=== PATIENT | female | born 1985 | race Caucasian/White ===

== ENCOUNTER 2021-04-23 12:11 | Outpatient (REF) | payer OTHER, SELFPAY ==
[2021-04-23 14:42] LABS: Alanine Aminotransferase 10 U/L (0-31); Anion Gap 13 (12-20); Aspartate Amino Transferase 14 U/L (5-31); Blood Urea Nitrogen 18 mg/dL (9-16); Calcium 9.5 mg/dL (8.4-10.2); Carbon Dioxide 25 mmol/L (22-29); Chloride 104 mmol/L (96-108); Cholesterol 197 mg/dL; Estimated Glomerular Filt Rate > 60; Glucose Fasting 85 mg/dL (60-99); HDL Cholesterol 75 mg/dL; LDL Cholesterol Calculated 112 mg/dl; Potassium 4.9 mmol/L (3.3-5.1); Sodium 137 mmol/L (135-145); Triglycerides 52 mg/dL
[2021-04-23 15:02] LABS: Vitamin D 25-OH Total 26.1 ng/mL (>30)
== END 2021-04-23 12:12 | disposition home or self-care (01) ==
LOC: HO.HMGCLDS 12:11
PROVIDERS: PCP Internal Medicine; Visit Provider Internal Medicine
DX: Z00.00 Encounter for general adult medical examination without abnormal findings (principal); I10 Essential (primary) hypertension; Z87.442 Personal history of urinary calculi
CPT/HCPCS: 36415; 80048; 80061; 82306; 84450; 84460

== ENCOUNTER 2021-05-21 10:26 | Outpatient (REF) | payer OTHER, SELFPAY ==
--- NOTE | ~2021-05-21 | US_ITS ---
EXAMINATION: US RETROPERITONEAL LIMITED (RENAL ONLY) CLINICAL INFORMATION: Personal history of urinary calculi. COMPARISON: None TECHNIQUE: Real-time imaging of the kidneys. FINDINGS: RIGHT KIDNEY: 11.5 x 4.0 x 4.6 cm (SAG x AP x TRV). The kidney is normal in size, contour, and echogenicity. Renal cortical thickness is normal. No calculi or focal parenchymal lesions. No hydronephrosis. LEFT KIDNEY: 10.0 x 4.5 x 4.7 cm (SAG x AP x TRV). The kidney is normal in size, contour, and echogenicity. Renal cortical thickness is normal. No focal parenchymal lesions or hydronephrosis. Midpole nonobstructing calculi measuring 3 mm and 2 mm respectively. US/US renal BI IMPRESSION: Left renal nonobstructing calculi. No evidence of hydronephrosis.
== END 2021-05-21 10:27 | disposition home or self-care (01) ==
LOC: HO.US 10:26
PROVIDERS: Visit Provider Internal Medicine
DX: Z87.442 Personal history of urinary calculi (principal)
CPT/HCPCS: 76775

== ENCOUNTER 2022-11-01 08:45 | Outpatient (REF) | payer OTHER, SELFPAY ==
--- NOTE | ~2022-11-01 | XR_ITS ---
EXAMINATION: XR FOREARM, RIGHT CLINICAL INFORMATION: Pain in the right forearm COMPARISON: None TECHNIQUE: AP and lateral views of the right forearm were obtained. FINDINGS: No fracture or cortical disruption. Appropriate alignment of the wrist and elbow. The soft tissues are unremarkable. No elbow joint effusion. XR/XR forearm RT 2V IMPRESSION: Normal right forearm.
== END 2022-11-01 08:46 | disposition home or self-care (01) ==
LOC: HO.HMGCX 08:45
PROVIDERS: PCP Internal Medicine; Visit Provider Internal Medicine
DX: M79.631 Pain in right forearm (principal)
CPT/HCPCS: 73090

== ENCOUNTER 2022-11-04 08:42 | Outpatient (REF) | payer OTHER, SELFPAY ==
[2022-11-04 11:28] LABS: MANUAL DIFF FLAG NO
[2022-11-04 11:45] LABS: Basophils Absolute Auto 0.1 X10*3/uL (0.0-0.2); Basophils Percent Auto 0.8 % (0-2); Eosinophils Absolute Auto 0.1 X10*3/uL (0.0-0.4); Eosinophils Percent Auto 1.8 % (0-4); Hemoglobin 13.4 g/dl (12.0-16.0); Imm Gran Abs Auto 0.03 X10*3/uL (0.00-0.03); Imm Gran Pct Auto 0.5 % (0.0-0.4); Lymphocytes Absolute Auto 1.7 X10*3/uL (1.2-4.9); Lymphocytes Percent Auto 25.7 % (20-40); Mean Corpuscular HGB Conc 32.7 g/dl (31.0-35.0); Mean Corpuscular Hemoglobin 31.1 pg (27.0-33.0); Mean Corpuscular Volume 95.1 fL (80.0-98.0); Mean Platelet Volume 10.5 fL (9.4-12.3); Monocytes Absolute Auto 0.5 X10*3/uL (0.1-1.2); Monocytes Percent Auto 7.1 % (2-11); Neutrophils Absolute Auto 4.2 x10*3/uL (2.0-8.3); Neutrophils Percent Auto 64.1 % (45-73); Platelet Count 208 X10*3/uL (160-400); Red Blood Count 4.31 X10*6/uL (4.20-5.50); Red Cell Distribution Width 12.1 % (11.0-16.0); White Blood Count 6.5 X10*3/uL (4.8-10.8)
[2022-11-04 12:14] LABS: Alanine Aminotransferase 10 U/L (0-31); Aspartate Amino Transferase 12 U/L (5-31); Cholesterol 176 mg/dL; Glucose Fasting 85 mg/dL (60-99); HDL Cholesterol 72 mg/dL; LDL Cholesterol Calculated 93 mg/dl; Triglycerides 57 mg/dL
[2022-11-04 12:20] LABS: Vitamin D 25-OH Total 40.6 ng/mL (>30)
== END 2022-11-04 08:43 | disposition home or self-care (01) ==
LOC: HO.HMGCLDS 08:42
PROVIDERS: PCP Internal Medicine; Visit Provider Internal Medicine
DX: Z00.00 Encounter for general adult medical examination without abnormal findings (principal); N92.0 Excessive and frequent menstruation with regular cycle; Z86.39 Personal history of other endocrine, nutritional and metabolic disease
CPT/HCPCS: 36415; 80061; 82306; 82947; 84450; 84460; 85025

== ENCOUNTER 2023-11-05 07:49 | Outpatient (AMB) | payer OTHER, SELFPAY ==
--- NOTE | 2023-11-05 07:51 | MHC.PC.OV ---
Vital Signs 11/05/23 07:55 Height 5 ft 4 in Weight 129 lb BMI 22.1 BP 110/64 Blood Pressure Location Rt brachial Position Sitting Pulse 69 Pulse Source Pulse Oximeter Pulse Oximetry (%) 99 Oxygen Delivery Method Room Air Intake Visit Reasons: Annual PE Intake Note: Pt is here today for her PE: Last papsmear 10/24/22 Allergies azithromycin [Zithromax] Adverse Reaction (Unknown, Verified 11/05/23 08:11) nausea/vomiting Medication List - Last Reconciled 11/05/23 by Nola Lewis MD norethindrone-ethin estradiol 1-35 mg-mcg (Alyacen) 1 tab PO DAILY Tobacco use date assessed: 11/05/23 Dental Screening Dental Screen Date: 11/05/23 Did you have a dental visit in the last 12 months?: Yes Did you have a dental problem in the last 6 months where you did not have access to dental care?: No Was dental information given to patient?: Patient has dentist HPI Annual PE HPI Details 37-year-old lady, here today for physical exam. Goes to [facility] for her routine Pap and pelvic exam which is currently up-to-date. She is also being followed there for her endometriosis here. She has had COVID vaccination in the past but does not want to get the booster, does not get flu shots, has had Tdap in the past, now due. Currently very worried about her daughter who has been cutting herself, now going to be seen for full psychiatric evaluation at [facility]. Has been having frequent anxiety attacks and depressed mood, currently also in the process of being seen for therapy at the same place as her daughter at [facility]. Does not want to start any medication at present time, able to control through breathing techniques [facility] Medical History (Updated 11/05/23 @ 08:33 by Nola Lewis MD) Endometriosis COVID-19 vaccine dose declined Refused influenza vaccine Mixed anxiety and depressive disorder History of vitamin D deficiency Anal fissure History of COVID-19 Hx of renal calculi History of iron deficiency anemia Bilateral ovarian cysts Raynauds syndrome Pes planus of both feet Surgical History No pertinent past surgical history Family History Father Essential hypertension Hyperlipidemia Mother Migraine Daughter Bipolar disorder Social History Housing: House Patient Tobacco Use Status: Former Tobacco user Years Smoked: 5 yrs e-Cigarette/Vaping Use: Never Used Second Hand Smoke Exposure: No service: No Current occupational status: employed 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 1. Little interest or pleasure in doing things: several days 2. Feeling down, depressed, or hopeless: more than half the days 3. Trouble falling or staying asleep, or sleeping too much: more than half the days 4. Feeling tired or having little energy: more than half the days 5. Poor appetite or overeating: several days 6. Feeling bad about yourself - or that you are a failure or have let yourself or your family down: more than half the days 7. Trouble concentrating on things, such as reading the newspaper or watching television: several days 8. Moving or speaking so slowly that other people could have noticed. Or the opposite - being so fidgety or restless that you have been moving around a lot more than usual: not at all 9. Thoughts that you would be better off or of hurting yourself in some way: not at all Total score: 11 Depression Screening Interpretation: Positive Depression Screening Follow-up: Existing condition, Community Mental Health Worker F/U (Currently in the process of being seen by therapist at [facility]) and Declines treatment (Declines medication) Depression Screening Done: Yes [id number] - PHQ-9 Billing: Yes Source: Developed by Drs. Mihai Yan, Goldie Fernández, Efren Allison and colleagues, with an educational lauren from [employer]. Thrive Questionnaire Date Thrive assessed: 11/05/23 I am a: Patient What is your living situation today?: I have a place to live, but I am worried about losing it in the future Within the past 12 months, did the food you bought not last and you didn't have the money to get more?: Never true Within the past 12 months, did you worry whether your food would run out before you got money to buy more?: Never true Do you have trouble paying for medicines?: No Do you have trouble getting transportation to medical appointments?: No Do you have trouble paying your heating and electricity bill?: No Do you have trouble taking care of your child, family member or friend?: No Do you have trouble with day-to-day activities such as bathing, preparing meals, shopping, managing finances, etc.?: No Are you currently unemployed and looking for a job?: No Are you interested in more education?: No THRIVE Score: 1 AUDIT C Alcohol Use Questionnaire (AUDIT-C) 1. How often do you have a drink containing alcohol?: Monthly or less 2. How many drinks containing alcohol do you have on a typical day when you are drinking?: 1 or 2 3. How often do you have six or more drinks on one occasion?: Never Total Score: 1 MANDA-7 AMB Questionnaire MANDA-7 Date MANDA - 7 assessed: 11/05/23 Feeling nervous, anxious, or on edge: 1 = Several days Not being able to stop or control worryin = More than half the days Worrying too much about different things: 1 = Several days Trouble relaxin = Several days Being so restless that it is hard to sit still: 1 = Several days Becoming easily annoyed or irritable: 1 = Several days Feeling afraid as if something awful might happen: 1 = Several days Total MANDA-7 score (0-4 normal; 5-9 mild; 10-14 moderate; 15-21 severe): 8 Source: Developed by Drs. Mihai Yan, Goldie Fernández, Efren Allison and colleagues, with an educational lauren from [employer]. MANDA-7 Assessment Billing MANDA-7 Assessment Tool: MANDA-7 Assessment 88805 Review of Systems Const Denies body aches, Denies fatigue, Denies fever(s), Denies headache(s) and Denies weakness Eyes Details: Currently sees an eye doctor in [facility]del[place]del[place] Denies change in vision, Denies eye discharge and Reports floaters ENT Denies dizziness, Denies headache(s), Denies nasal congestion, Denies nasal discharge and Denies sore throat Card Denies chest pain, Denies lightheadedness, Denies palpitations and Denies dyspnea Resp Denies chest congestion, Denies cough, Denies dyspnea and Denies wheezing GI Denies abdominal pain, Denies change in bowel habits and Denies heartburn Details: Currently being followed by her OBGYN at [facility] for her endometriosis, has irregular menstrual cycles, and occasional dyspareunia. up-to-date with her Pap smear Denies urinary frequency, Denies dysuria and Denies urinary urgency Musc Reports as per HPI Skin/Breast Denies lesions and Denies rash Neuro Denies dizziness, Denies headache(s) and Denies weakness Psych Reports as per HPI Endo Denies fatigue, Denies polydipsia, Denies polyuria and Denies palpitations Fran/Lymph Denies easy bruising Aller/Immun Denies seasonal rhinorrhea and Denies wheezing Physical exam (Primary Care) Vital Signs: Last Vital Signs Pulse 69 11/05/23 07:55 BP 110/64 11/05/23 07:55 Pulse Ox 99 11/05/23 07:55 Oxygen Delivery Method Room Air 11/05/23 07:55 BMI result Body Mass Index 22.1 Tobacco/Smoking Status: Tobacco use Status Tobacco use date assessed 11/05/23 11/05/23 07:58 Patient Tobacco Use Status Former Tobacco user 11/05/23 07:58 e-Cigarette/Vaping Use Never Used 11/05/23 07:58 Depression Screening Interpretation: Positive Depression Screening Follow-up: Existing condition, Community Mental Health Worker F/U (Currently in the process of being seen by therapist at [facility]) and Declines treatment (Declines medication) Thrive Assessment: Date of Thrive Assessment Date Thrive assessed 11/01/22 11/05/23 07:58 Const General: cooperative, comfortable and no acute distress Orientation/consciousness: patient oriented x3 HENMT Ears: hearing grossly normal bilaterally, external ears normal, TM's normal bilaterally and EAC's normal General nose exam: Normal external nose present, Normal nasal mucous membranes and turbinates present and No nasal discharge present Mouth: Normal oral and palatal mucosa present, oropharynx normal and moist mucous membranes Throat: Yes posterior oropharynx normal Eyes General: appearance normal, both eyes and all related structures Conjunctivae: conjunctivae normal Pupils: Equal, round and reactive pupils present EOM: EOMs intact bilaterally Neck Neck: Yes full ROM, Yes no lymphadenopathy and Yes supple Thyroid: Thyroid normal (Nonpalpable) Chest Chest palpation & inspection: normal inspection of the chest Breast/axilla palpation: normal palpation of the breasts Resp Effort & Inspection: normal respiratory effort and able to speak in complete sentences Auscultation: clear to auscultation bilaterally Cardio Rate: regular rate Rhythm: regular rhythm Heart sounds: S1 normal heart sound present and S2 normal heart sound present GI Inspection: Yes normal to inspection Palpation (GI): Soft to palpation, nontender and no masses Auscultation: normal bowel sounds General: Yes deferred (Goes to [facility], up-to-date with her Pap smear done earlier this mon) Back/Spine/Pelvis Cervical Spine: cervical ROM normal Thoracic/Lumbar Spine: thoracic and lumbar spine normal to inspection Skin General skin exam: no rashes or lesions noted Neuro General: patient oriented x3, gait normal, tone normal, moves all extremities, Normal light touch and pain sensation and no focal motor deficits Cranial nerves: Yes Equal, round and reactive pupils present Cognition (Neuro): normal cognition Gait exam (Neuro): Normal gait present Motor exam (neuro): 5/5 motor strength present throughout Extrem General: Yes full ROM, Yes no joint enlargement, Yes no clubbing, cyanosis or edema, Yes no pedal edema, Yes no calf tenderness and Yes normal gait Psych Appearance: grossly normal Mental Status: mental status grossly normal Speech and movement: Normal speech and movement present Affect: normal affect Attitude: cooperative Thought process: Normal thought process present Immunizations Boostrix Tdap 2.5 Lf unit-8 mcg-5 Lf/0.5 mL intramuscular syringe Performing Provider: Nola Lewis MD Performing Location: [facility] Administered by: Flor Vitale CMA on 11/05/23 08:37 Dose Route Admin Location Dispensed Lot Number Expiration Date NDC Digital Editor 0.5 mL IM Left Deltoid 0.5 mL [id number] 01/15/26 [id number] [employer] VIS Given Date VIS Provided VIS Publication Date 11/05/23 Single Vaccine 21 Eligibility Eligibility Date Funding Source Not [facility] Eligible 11/05/23 Private Assessment and Plan Assessment & Plan (1) Annual visit for general adult medical examination with abnormal findings: Code(s): Z00.01 - Encounter for general adult medical examination with abnormal findings Plan: Will check appropriate labs. Recommended dental visit every 6 months and regular eye exams, at least every 2 years. Take adequate calcium in diet and vitamin-D 3 at 2000 IU per cap once a day, in addition to weight-bearing exercises to help maintain good muscle tone and weight control. Instructed to do self-breast exam, and recommended to get yearly mammogram, starting at age 40. Declines getting COVID booster and flu vaccine, Tdap given today (2) History of vitamin D deficiency: Code(s): Z86.39 - Personal history of other endocrine, nutritional and metabolic disease Plan: Will check vitamin-D, advised to start taking sque-amu-cjwyshl vitamin-D 3 at least 2000 units daily (3) Mixed anxiety and depressive disorder: Code(s): F41.8 - Other specified anxiety disorders Plan: Currently in the process of seeing a therapist at [facility]. Declines starting any medication, able to control her symptoms with behavioral modifications (4) Refused influenza vaccine: Code(s): Z28.21 - Immunization not carried out because of patient refusal (5) COVID-19 vaccine dose declined: Code(s): Z28.21 - Immunization not carried out because of patient refusal (6) Endometriosis: Comment: Followed by Cyndee Farfan at [facility] Code(s): N80.9 - Endometriosis, unspecified Plan: Currently on control pills, followed by [facility] Orders: Orders Alanine Aminotransferase Today Z00.01 - Encounter for general adult medical examination with abnormal findings, Z13.1 - Encounter for screening for diabetes mellitus, Z13.220 - Encounter for screening for lipoid disorders, Z86.39 - Personal history of other endocrine, nutritional and metabolic disease Aspartate Amino Transferase Today Z00.01 - Encounter for general adult medical examination with abnormal findings, Z13.1 - Encounter for screening for diabetes mellitus, Z13.220 - Encounter for screening for lipoid disorders, Z86.39 - Personal history of other endocrine, nutritional and metabolic disease Lipid Panel Today Z00.01 - Encounter for general adult medical examination with abnormal findings, Z13.1 - Encounter for screening for diabetes mellitus, Z13.220 - Encounter for screening for lipoid disorders, Z86.39 - Personal history of other endocrine, nutritional and metabolic disease Vitamin D 25-OH Total Today Z00.01 - Encounter for general adult medical examination with abnormal findings, Z13.1 - Encounter for screening for diabetes mellitus, Z13.220 - Encounter for screening for lipoid disorders, Z86.39 - Personal history of other endocrine, nutritional and metabolic disease TDaP Immunization Today Z23 - Encounter for immunization Glucose Fasting Today Z00.01 - Encounter for general adult medical examination with abnormal findings, Z13.1 - Encounter for screening for diabetes mellitus, Z13.220 - Encounter for screening for lipoid disorders, Z86.39 - Personal history of other endocrine, nutritional and metabolic disease Medications: New Boostrix Tdap (diphth,pertus(acell),tetanus) 0.5 mL IM ONCE 0.5 mL 0RF NS Z23 - Encounter for immunization Coding Level of Care Code Est Pt Prev Care 18-39y(47390) Diagnoses Annual visit for general adult medical examination with abnormal findings Z00.01 History of vitamin D deficiency Z86.39 Mixed anxiety and depressive disorder F41.8 Refused influenza vaccine Z28.21 COVID-19 vaccine dose declined Z28.21 Endometriosis N80.9 Additional Codes MANDA-7 Assessment Billing - MANDA-7 Assessment Tool: MANDA-7 Assessment 03263 ([id number])
[2023-11-05 07:55] VITALS: BP 110/64; PULSE 69; O2SAT 99; BMI 22.1
== END 2023-11-05 09:20 | disposition home or self-care (01) ==
PROVIDERS: Visit Provider Internal Medicine
DX: Z00.00 Encounter for general adult medical examination without abnormal findings (principal); Z86.39 Personal history of other endocrine, nutritional and metabolic disease; F41.8 Other specified anxiety disorders; Z23 Encounter for immunization; N80.9 Endometriosis, unspecified; Z28.21 Immunization not carried out because of patient refusal
CPT/HCPCS: 90471; 90715; 99395

== ENCOUNTER 2023-11-05 08:39 | Outpatient (REF) | payer OTHER, SELFPAY ==
[2023-11-05 12:14] LABS: Alanine Aminotransferase 16 U/L (0-31); Aspartate Amino Transferase 15 U/L (5-31); Cholesterol 202 mg/dL (<200); Glucose Fasting 83 mg/dL (60-99); HDL Cholesterol 80 mg/dL (>40); LDL Cholesterol Calculated 111 mg/dL (<100); Triglycerides 55 mg/dL (<150)
[2023-11-05 12:31] LABS: Vitamin D 25-OH Total 55.3 ng/mL (>30)
== END 2023-11-05 08:40 | disposition home or self-care (01) ==
LOC: HO.HMGCLDS 08:39
PROVIDERS: PCP Internal Medicine; Visit Provider Internal Medicine
DX: Z00.01 Encounter for general adult medical examination with abnormal findings (principal); Z13.220 Encounter for screening for lipoid disorders; Z13.1 Encounter for screening for diabetes mellitus; Z86.39 Personal history of other endocrine, nutritional and metabolic disease
CPT/HCPCS: 36415; 80061; 82306; 82947; 84450; 84460

== ENCOUNTER 2024-11-11 08:08 | Outpatient (AMB) | payer OTHER, SELFPAY ==
--- OUTSIDE RECORDS SUMMARY | 2024-11-11 08:12 | XMS_ITS | Patient Health Record ---
Author Organization [facility] Address [address] [place] [address] Care Team Providers Care Client Relations Specialist Name Role Phone Debbie GARVEY, Nola Garcia Primary Care Provider Un available Marlena Canales Unavailable [phone] Allergies Allergen (clinical drug ingredient) Drug/Non Drug Allergy documented on EMR Reaction Allergy Type Onset Date Status Biaxin vomiting Drug Allergy Active erythromycin Erythromycin vomiting Drug Allergy A ctive azithromycin Azithromycin vomiting Drug Allergy A ctive Reason For Referral No Information Medications Medication SIG (Take, Route, Frequency, Duration) Notes Start Date End Date Status Alyacen 1/35 1-35 MG-MCG as directed Orally Active Vitamin D Active Womens One Daily as directed Orally Not-Taking Sprintec 28 0.25-35 MG-MCG 1 tablet Orally Once a day for 28 day(s) Not-Taking Social History Tobacco use other than smoking: Question Answer Notes Are you an other tobacco user? No Section Notes: walks, hjiling walks, hjiling walks, hjiling Problems Problem Type SNOMED Code ICD Code Onset Dates Problem Status W/U Status Risk Notes Problem [id number] Lower limb length difference (M21.70) Active confirmed Plan Of Treatment Pending Test Test Name Order Date X ray : Foot, left 3V 04/21/2012 X ray : Foot, right 3V 04/21/2012 Insurance Providers Payer Name Payer Address Payer Phone Subscriber Number Group Number Insured Name Patient Relationship to Insured Coverage Start Date Coverage End Date [facility] [address] [address] [place] [address] [id number] Sara Bell Self - patient is the insured Medical (General) History Medical History History ICD Code raynauds syndrome scarlet fever chicken pox Depression Headaches/Migraines Poor circulation Surgical History Surgery Date(Month/Year) hemorroid 12/2020
--- NOTE | 2024-11-11 08:15 | MHC.PC.OV ---
Vital Signs 11/11/24 08:25 Height 5 ft 4 in Weight 129 lb BMI 22.1 BP 94/60 Blood Pressure Location Lt brachial Position Sitting Respiration 16 Pulse 63 Pulse Source Pulse Oximeter Temp 98.0 F Temp Source Oral Pulse Oximetry (%) 100 Oxygen Delivery Method Room Air Intake Visit Reasons: Annual PE Intake Note: Pt is here today for her PE: Last papsmear 10/24/22 Allergies azithromycin [Zithromax] Adverse Reaction (Unknown, Verified 11/11/24 08:42) nausea/vomiting Medication List - Last Reconciled 11/11/24 by Nola Lewis MD norethindrone-ethin estradiol 1-35 mg-mcg (Alyacen) 1 tab PO DAILY Tobacco use date assessed: 11/11/24 Dental Screening Dental Screen Date: 11/11/24 Did you have a dental visit in the last 12 months?: Yes Did you have a dental problem in the last 6 months where you did not have access to dental care?: No Was dental information given to patient?: Patient has dentist HPI Annual PE HPI Details 38-year-old lady with past medical history of endometriosis currently being followed at [facility] , here today for for her physical exam. She has been feeling well, with no complaints at present time except for irregular periods even on control pills. Currently still waiting for appointment scheduled from [facility] for her routine follow-up Has had Tdap in the past but does not want to get flu shot or COVID booster. [facility] Medical History (Updated 11/11/24 @ 09:59 by Nola Lewis MD) Oral contraceptive use Endometriosis COVID-19 vaccine dose declined Refused influenza vaccine History of vitamin D deficiency Anal fissure History of COVID-19 Hx of renal calculi History of iron deficiency anemia Bilateral ovarian cysts Raynauds syndrome Pes planus of both feet Surgical History No pertinent past surgical history Family History Father Essential hypertension Hyperlipidemia Mother Migraine Daughter Bipolar disorder Social History Housing: House Patient Tobacco Use Status: Former Tobacco user Years Smoked: 5 yrs e-Cigarette/Vaping Use: Never Used Second Hand Smoke Exposure: No service: No Current occupational status: employed 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 1. Little interest or pleasure in doing things: not at all 2. Feeling down, depressed, or hopeless: not at all 3. Trouble falling or staying asleep, or sleeping too much: more than half the days 4. Feeling tired or having little energy: several days 5. Poor appetite or overeating: not at all 6. Feeling bad about yourself - or that you are a failure or have let yourself or your family down: several days 7. Trouble concentrating on things, such as reading the newspaper or watching television: not at all 8. Moving or speaking so slowly that other people could have noticed. Or the opposite - being so fidgety or restless that you have been moving around a lot more than usual: not at all 9. Thoughts that you would be better off or of hurting yourself in some way: several days Total score: 5 Depression Screening Interpretation: Negative Depression Screening Done: Yes 67614 - PHQ-9 Billing: Yes Source: Developed by Drs. Mihai Yan, Goldie Fernández, Efren Allison and colleagues, with an educational lauren from [employer]. Thrive Questionnaire Date Thrive assessed: 11/05/24 I am a: Patient What is your living situation today?: I have a steady place to live Within the past 12 months, did the food you bought not last and you didn't have the money to get more?: Sometimes True Within the past 12 months, did you worry whether your food would run out before you got money to buy more?: Sometimes True Do you have trouble paying for medicines?: No Do you have trouble getting transportation to medical appointments?: No Do you have trouble paying your heating and electricity bill?: No Do you have trouble taking care of your child, family member or friend?: No Do you have trouble with day-to-day activities such as bathing, preparing meals, shopping, managing finances, etc.?: No Are you currently unemployed and looking for a job?: No Are you interested in more education?: Yes Please select the resources that you would like help with: None Currently or been in a relationship where the following occur: No concerns reported THRIVE Score: 2 AUDIT C Alcohol Use Questionnaire (AUDIT-C) 1. How often do you have a drink containing alcohol?: Monthly or less 2. How many drinks containing alcohol do you have on a typical day when you are drinking?: 1 or 2 3. How often do you have six or more drinks on one occasion?: Never Total Score: 1 MANDA-7 AMB Questionnaire MANDA-7 Date MANDA - 7 assessed: 11/11/24 Feeling nervous, anxious, or on edge: 1 = Several days Not being able to stop or control worryin = Not at all Worrying too much about different things: 1 = Several days Trouble relaxin = Not at all Being so restless that it is hard to sit still: 0 = Not at all Becoming easily annoyed or irritable: 1 = Several days Feeling afraid as if something awful might happen: 0 = Not at all Total MANDA-7 score (0-4 normal; 5-9 mild; 10-14 moderate; 15-21 severe): 3 Source: Developed by Drs. Mihai Yan, Goldie Fernández, Efren Allison and colleagues, with an educational lauren from [employer]. MANDA-7 Assessment Billing MANDA-7 Assessment Tool: MANDA-7 Assessment 72272 Review of Systems Const Denies body aches, Denies fatigue, Denies fever(s), Denies headache(s) and Denies weakness Eyes Details: Currently sees an eye doctor in [facility]del[place]del[place] Denies change in vision, Denies eye discharge and Reports floaters ENT Denies dizziness, Denies headache(s), Denies nasal congestion, Denies nasal discharge and Denies sore throat Card Denies chest pain, Denies lightheadedness, Denies palpitations and Denies dyspnea Resp Denies chest congestion, Denies cough, Denies dyspnea and Denies wheezing GI Denies abdominal pain, Denies change in bowel habits and Denies heartburn Details: [facility] the [facility]. Currently getting her control pills prescribed from there Denies urinary frequency, Denies dysuria and Denies urinary urgency Musc Reports no additional complaints Skin/Breast Denies lesions and Denies rash Neuro Denies dizziness, Denies headache(s) and Denies weakness Psych Reports no additional complaints Endo Denies fatigue, Denies polydipsia, Denies polyuria and Denies palpitations Fran/Lymph Denies easy bruising Aller/Immun Denies seasonal rhinorrhea and Denies wheezing Physical exam (Primary Care) Vital Signs: Last Vital Signs Temp 98.0 F 11/11/24 08:25 Pulse 63 11/11/24 08:25 Resp 16 11/11/24 08:25 BP 94/60 11/11/24 08:25 Pulse Ox 100 11/11/24 08:25 Oxygen Delivery Method Room Air 11/11/24 08:25 BMI result Body Mass Index 22.1 Tobacco/Smoking Status: Tobacco use Status Tobacco use date assessed 11/11/24 11/11/24 08:18 Patient Tobacco Use Status Former Tobacco user 11/11/24 08:15 e-Cigarette/Vaping Use Never Used 11/11/24 08:15 PHQ-9: PHQ-9 Score PHQ-9: Total score 6 11/11/24 08:48 Depression Screening Interpretation: Negative Thrive Assessment: Date of Thrive Assessment Date Thrive assessed 11/05/24 11/11/24 08:15 Currently or been in a relationship where the following occur: No concerns reported Advance Care Planning discussion: Completed/Scanned Date of discussion: 11/11/24 Who was present: Patient Forms completed: Health Care Proxy Time spent: 16-45 minutes Actual minutes spent: 3 Const General: comfortable and no acute distress Orientation/consciousness: patient oriented x3 HENMT Ears: hearing grossly normal bilaterally, external ears normal, TM's normal bilaterally and EAC's normal General nose exam: Normal external nose present, Normal nasal mucous membranes and turbinates present and No nasal discharge present Mouth: Normal oral and palatal mucosa present, oropharynx normal and moist mucous membranes Throat: Yes posterior oropharynx normal Eyes General: appearance normal, both eyes and all related structures Conjunctivae: conjunctivae normal Pupils: Equal, round and reactive pupils present EOM: EOMs intact bilaterally Neck Neck: Yes full ROM, Yes no lymphadenopathy and Yes supple Thyroid: Thyroid normal (Nonpalpable) Chest Chest palpation & inspection: normal inspection of the chest Breast/axilla palpation: normal palpation of the breasts Resp Effort & Inspection: normal respiratory effort and able to speak in complete sentences Auscultation: clear to auscultation bilaterally Cardio Rate: regular rate Rhythm: regular rhythm Heart sounds: S1 normal heart sound present and S2 normal heart sound present GI Inspection: Yes normal to inspection Palpation (GI): Soft to palpation, nontender and no masses Auscultation: normal bowel sounds General: Yes deferred (Goes to [facility], up-to-date with her Pap smear ) Back/Spine/Pelvis Cervical Spine: cervical ROM normal Thoracic/Lumbar Spine: thoracic and lumbar spine normal to inspection Skin General skin exam: no rashes or lesions noted Neuro General: patient oriented x3, gait normal, tone normal, moves all extremities, Normal light touch and pain sensation and no focal motor deficits Cranial nerves: Yes Equal, round and reactive pupils present Cognition (Neuro): normal cognition Gait exam (Neuro): Normal gait present Motor exam (neuro): 5/5 motor strength present throughout Extrem General: Yes full ROM, Yes no joint enlargement, Yes no clubbing, cyanosis or edema, Yes no pedal edema, Yes no calf tenderness and Yes normal gait Psych Appearance: grossly normal Mental Status: mental status grossly normal Speech and movement: Normal speech and movement present Affect: normal affect Attitude: cooperative Thought process: Normal thought process present Coding Level of Care Code Est Pt Prev Care 18-39y(47768) Diagnoses Annual visit for general adult medical examination with abnormal findings Z00.01 Raynaud's disease without gangrene I73.00 Raynaud?s-associated gangrene presence: without gangrene Endometriosis N80.9 Encounter for counseling regarding advance directives Z71.89 Oral contraceptive use Z30.41 COVID-19 vaccine dose declined Z28.21 Refused influenza vaccine Z28.21 Additional Codes MANDA-7 Assessment Billing - MANDA-7 Assessment Tool: MANDA-7 Assessment 17821 ([id number]) PHQ-9 - 15502 - PHQ-9 Billing: Yes ([id number]) Vital Signs *Quality* - Advance Care Planning discussion: Completed/Scanned ([id number]) Vital Signs *Quality* - Time spent: 16-45 minutes ([id number]) Assessment & Plan Assessment & Plan (1) Annual visit for general adult medical examination with abnormal findings: Code(s): Z00.01 - Encounter for general adult medical examination with abnormal findings Plan: Will check appropriate labs. Recommended dental visit every 6 months and continue regular eye exams, at least every 2 years. Take adequate calcium in diet and vitamin-D 3 at 2000 IU per cap once a day, in addition to weight-bearing exercises to help maintain good muscle tone and weight control. Instructed to do self-breast exam, and recommended to get yearly mammogram, starting at age 40. Scheduling appointment with [facility] for her routine Pap and pelvic exam as well as monitoring control pills and for treatment of her osteo endometriosis. Last Pap smear was in 2022 with benign findings patient does not want to get flu shots, has had COVID vaccines in the past but does not want to get boosters, up-to-date with Tdap (2) Raynauds syndrome: Code(s): I73.00 - Raynaud's syndrome without gangrene Category: Medical Qualifiers: Raynaud?s-associated gangrene presence: without gangrene Qualified Code(s): I73.00 - Raynaud's syndrome without gangrene Plan: Avoid sudden changes in temperature, keep hands and feet warm at all times, use heat warmth/heat packs, wool socks and gloves (3) Endometriosis: Comment: Followed by Cyndee Farfan at [facility] Code(s): N80.9 - Endometriosis, unspecified Category: Medical Plan: Switched provider to [facility], waiting for appointment , currently on control pills but has been bleeding irregularly even on it (4) Encounter for counseling regarding advance directives: Code(s): Z71.89 - Other specified counseling Plan: Initiated the conversation about Advanced Directives. Advanced Directives help patients prepare for current and future decisions about their medical treatment and place of care. Discussed with patient that it is a process where a patients current condition and prognosis are reviewed, their wishes for information regarding their illness are elicited, and likely medical dilemmas are presented and options discussed. Healthcare proxy form completed today. The form can be amended as needed, reviewed yearly and make changes as needed (5) Oral contraceptive use: Code(s): Z30.41 - Encounter for surveillance of contraceptive pills Category: Social Hx Plan: Currently being followed at [facility] (6) COVID-19 vaccine dose declined: Code(s): Z28.21 - Immunization not carried out because of patient refusal Category: Medical Plan: Refused COVID booster (7) Refused influenza vaccine: Code(s): Z28.21 - Immunization not carried out because of patient refusal Category: Medical Plan: Declined flu vaccine Orders: Orders Alanine Aminotransferase Today I73.00 - Raynaud's syndrome without gangrene, N80.9 - Endometriosis, unspecified, Z00.01 - Encounter for general adult medical examination with abnormal findings, Z30.41 - Encounter for surveillance of contraceptive pills, Z86.39 - Personal history of other endocrine, nutritional and metabolic disease AMB Hemoglobin A1c Today I73.00 - Raynaud's syndrome without gangrene, N80.9 - Endometriosis, unspecified, Z00.01 - Encounter for general adult medical examination with abnormal findings, Z30.41 - Encounter for surveillance of contraceptive pills, Z71.89 - Other specified counseling, Z86.39 - Personal history of other endocrine, nutritional and metabolic disease Lipid Panel Today I73.00 - Raynaud's syndrome without gangrene, N80.9 - Endometriosis, unspecified, Z00.01 - Encounter for general adult medical examination with abnormal findings, Z30.41 - Encounter for surveillance of contraceptive pills, Z71.89 - Other specified counseling, Z86.39 - Personal history of other endocrine, nutritional and metabolic disease Basic Metabolic Panel Fasting Today I73.00 - Raynaud's syndrome without gangrene, N80.9 - Endometriosis, unspecified, Z00.01 - Encounter for general adult medical examination with abnormal findings, Z30.41 - Encounter for surveillance of contraceptive pills, Z71.89 - Other specified counseling, Z86.39 - Personal history of other endocrine, nutritional and metabolic disease Vitamin D 25-OH Total Today I73.00 - Raynaud's syndrome without gangrene, N80.9 - Endometriosis, unspecified, Z00.01 - Encounter for general adult medical examination with abnormal findings, Z30.41 - Encounter for surveillance of contraceptive pills, Z71.89 - Other specified counseling, Z86.39 - Personal history of other endocrine, nutritional and metabolic disease
[2024-11-11 08:25] VITALS: BP 94/60; PULSE 63; RESP 16; TEMP 36.7; O2SAT 100; BMI 22.1
== END 2024-11-11 09:46 | disposition home or self-care (01) ==
PROVIDERS: PCP Internal Medicine; Visit Provider Internal Medicine
DX: Z00.01 Encounter for general adult medical examination with abnormal findings (principal); I73.00 Raynaud's syndrome without gangrene; N80.9 Endometriosis, unspecified; Z71.89 Other specified counseling; Z30.41 Encounter for surveillance of contraceptive pills; Z28.21 Immunization not carried out because of patient refusal; Z00.00 Encounter for general adult medical examination without abnormal findings

== ENCOUNTER 2024-11-11 08:08 | Outpatient (REF) | payer OTHER, SELFPAY ==
[2024-11-11 10:31] LABS: Alanine Aminotransferase 14 U/L (0-31); Anion Gap 12 (12-20); Blood Urea Nitrogen 10 mg/dL (9-16); Calcium 9.1 mg/dL (8.4-10.2); Carbon Dioxide 24 mmol/L (22-29); Chloride 109 mmol/L (96-108); Cholesterol 183 mg/dL (<200); Estimated Glomerular Filt Rate > 60; Glucose Fasting 91 mg/dL (60-99); HDL Cholesterol 73 mg/dL (>40); LDL Cholesterol Calculated 98 mg/dL (<100); Potassium 4.5 mmol/L (3.3-5.1); Sodium 140 mmol/L (135-145); Triglycerides 62 mg/dL (<150)
[2024-11-11 10:51] LABS: Vitamin D 25-OH Total 28.5 ng/mL (>30)
== END 2024-11-11 08:09 | disposition home or self-care (01) ==
LOC: HO.HMGCLDS 08:08
PROVIDERS: PCP Internal Medicine; Visit Provider Internal Medicine
DX: Z00.01 Encounter for general adult medical examination with abnormal findings (principal); I73.00 Raynaud's syndrome without gangrene; N80.9 Endometriosis, unspecified; Z86.39 Personal history of other endocrine, nutritional and metabolic disease; Z71.89 Other specified counseling; Z28.21 Immunization not carried out because of patient refusal
CPT/HCPCS: 36415; 80048; 80061; 82306; 84460; 96127